=== PATIENT | male | born 1995 | race Caucasian/White ===

== ENCOUNTER 2016-10-19 20:55 | Emergency (ER) | payer BC ==
[~2016-10-19] VITALS: Ht 185.4 cm; Wt 80.0 kg
[2016-10-19 20:56] VITALS: BP 135/87; PULSE 97; RESP 18; TEMP 99.3; O2SAT 99
--- NOTE | 2016-10-19 22:20 | PD ---
HPI Chief Complaint: Injury Time Seen by Provider: 22:15 Travel History International Travel<30 days: No Contact w/Intl Traveler<30days: No Traveled to known affect area: No History of Present Illness HPI 20-year-old male complains of left ankle pain. Patient fell off a skateboard and everted his left foot and started having severe pain localized to left ankle. Patient states the pain is sharp stabbing pain. Patient denies any pain radiation. Patient states that the pain is worse with weightbearing. On a scale of 1-10 the pain is a 10. Patient denies any other injury. PFSH Past Medical History Medical History: Denies Significant Hx Tetanus Vaccination: Unknown Past Surgical History Surgical History: No Previous Surgery Social History Alcohol Use: Yes (RARE) Tobacco Use: No Substance Use: No Allergies-Medications (Allergen,Severity, Reaction): Coded Allergies: No Known Allergies (Unverified , 10/19/16) Reported Meds & Prescriptions Reported Meds & Active Scripts Active No Active Prescriptions or Reported Medications Review of Systems General / Constitutional: No: Fever Eyes: No: Visual changes HENT: No: Headaches Cardiovascular: No: Chest Pain or Discomfort Respiratory: No: Shortness of Breath Gastrointestinal: No: Abdominal Pain Genitourinary: No: Dysuria Musculoskeletal: Positive: Pain Skin: No Rash Neurologic: No: Weakness Psychiatric: No: Depression Endocrine: No: Polydipsia Hematologic/Lymphatic: No: Easy Bruising Physical Exam Narrative GENERAL: Well-nourished, well-developed patient. SKIN: Focused skin assessment warm/dry. HEAD: Normocephalic. EYES: No scleral icterus. No injection or drainage. NECK: Supple, trachea midline. No JVD or lymphadenopathy. CARDIOVASCULAR: Regular rate and rhythm without murmurs, gallops, or rubs. RESPIRATORY: Breath sounds equal bilaterally. No accessory muscle use. GASTROINTESTINAL: Abdomen soft, non-tender, nondistended. MUSCULOSKELETAL: No cyanosis, or edema. BACK: Nontender without obvious deformity. No CVA tenderness. Patient has soft tissue swelling tenderness lateral malleolus area of the left ankle. Full range of motion of the toes. Sensorimotor function distally intact. Data Data Last Documented VS Vital Signs Date Time Temp Pulse Resp B/P Pulse Ox O2 Delivery O2 Flow Rate FiO2 10/19/16 20:56 99.3 97 18 135/87 99 Room Air Orders Ankle, Complete ([id number]) (10/19/16 22:18) Splint Or Brace Apply/Monitor (10/19/16 22:52) Crutches (10/19/16 22:52) Complete Blood Count With Diff (10/19/16 23:08) Basic Metabolic Panel (Bmp) (10/19/16 23:08) Prothrombin Time / Inr (Pt) (10/19/16 23:08) Act Partial Throm Time (Ptt) (10/19/16 23:08) Iv Access Insert/Monitor (10/19/16 23:08) Sodium Chlor 0.9% 1000 Ml Inj (Ns 1000 M (10/19/16 23:15) Morphine Inj (Morphine Inj) (10/19/16 23:15) Ondansetron Inj (Zofran Inj) (10/19/16 23:15) MDM Medical Decision Making Medical Screen Exam Complete: Yes Emergency Medical Condition: Yes Interpretation(s) X-ray left ankle shows a trimalleolar fracture with minimal displacement. Differential Diagnosis Differential diagnosis including sprain, fracture, dislocation. Narrative Course 20-year-old male with left ankle injury. I spoke with Dr. Mihir Donaldson, orthopedist concrete products machine operator. Dr. Zuniga advised patient to be admitted for surgery in a.m. Patient's mother called and spoke with Dr. Zuniga. Patient's mother wants patient to go to a hospital in [place] and see another orthopedist for surgery or may go home in [place] for surgery. Hammonds splint and crutches given. Diagnosis Primary Impression: Closed trimalleolar fracture of left ankle Qualified Code: S82.852A - Closed trimalleolar fracture of left ankle, initial encounter Admitting Information Admitting Physician Requests: Admit Patient Instructions: General Instructions Additional Instructions: Take medication as needed for pain. Keep left leg elevated. Follow with orthopedist as per mother's wish. Med/Other Pt SpecificInfo: Prescription(s) given Scripts Hydrocodone-Acetaminophen (Baker)5-325 mg Tab1 Tab PO Q6H PRN (PAIN) #30 TAB Prov:Elijah Murphy MD 10/19/16 Disposition: 01 DISCHARGE HOME Condition: Stable Elijah Murphy MD Oct 19, 2016 22:20
--- NOTE | 2016-10-19 22:43 | RADRPT ---
EXAM DATE/TIME: 10/19/2016 22:23 [facility] COMPARISON: No previous studies available for comparison. INDICATIONS : Left ankle pain post fall from skateboard. MEDICAL HISTORY : Left ankle fracture 1997. SURGICAL HISTORY : None. ENCOUNTER: Initial ACUITY: 1 day PAIN SCORE: 4/10 LOCATION: Left ankle. FINDINGS: Mild, old fracture deformities seen of the distal shaft of the left fibula. There is a superimposed a cute comminuted and slightly medial displaced fracture of the distal fibula. There are minimally disp laced fractures of the posterior and medial malleolus the distal tibia. The ankle mortise is slightly subluxed laterally, no more than a couple millimeters. CONCLUSION: 1. Minimally displaced acute trimalleolar fracture. 2. Old distal fibular fracture. 3. Slight lateral subluxation of the tibiotalar joint. Ruperto Lujan MD on October 19, 2016 at 22:39 Board Certified Radiologist. This report was verified electronically.
[2016-10-19] MEDS ORDERED: SODIUM CHLOR 0.9% 1000 ML INJ 1,000 ML IV SCH (23:15)
[2016-10-19] MEDS ORDERED: MORPHINE SULFATE 4 MG/ML INJ IV PUSH ONE (23:15)
[2016-10-19] MEDS ORDERED: ONDANSETRON HCL 4 MG/2 ML VIAL IV PUSH ONE (23:15)
[2016-10-19] MEDS ORDERED: NORC5TAB PO (23:46)
== END 2016-10-20 00:07 | disposition home or self-care (01) ==
LOC: NEPD 20:55
DX: S82.855A Nondisplaced trimalleolar fracture of left lower leg, initial encounter for closed fracture (principal); V00.131A Fall from skateboard, initial encounter; Y93.51 Activity, roller skating (inline) and skateboarding; Y92.9 Unspecified place or not applicable
CPT/HCPCS: 29515; 73610